=== PATIENT | female | born 1970 | race Caucasian/White ===

== ENCOUNTER 2018-07-13 21:33 | Emergency (ER) | payer OTHER ==
[2018-07-13 21:56] VITALS: BP 125/86; PULSE 101; RESP 20; TEMP 98.6; O2SAT 97
[2018-07-13] MEDS ORDERED: Bacitracin 500 Units/gm Oint Foilpak UD ONE (22:07)
--- NOTE | 2018-07-13 23:23 | C.PDOC ---
History Of Present Illness 47 year old female presents to the ER after she missed a step at home causing her to fall and twist her right ankle. Patient is complaining of pain and swelling of the right ankle and a scrap to the left knee. Denies LOC, weakness, or numbness. Time Seen by Provider: 07/13/18 21:51 Chief Complaint (Nursing): Abnormal Skin Integrity History Per: Patient History/Exam Limitations: no limitations Onset/Duration Of Symptoms: Hrs Current Symptoms Are (Timing): Still Present Location Of Injury: Right: Ankle, Left: Knee Recent travel outside of the [place]: No Past Medical History Reviewed: Historical Data, Nursing Documentation, Vital Signs Vital Signs: Last Vital Signs Temp 98.6 F 07/13/18 21:50 Pulse 101 H 07/13/18 21:50 Resp 20 07/13/18 21:50 BP 125/86 07/13/18 21:50 Pulse Ox 97 07/13/18 21:50 Family History: States: Unknown Family Hx - Social History Hx Alcohol Use: No Hx Substance Use: No - Immunization History Hx Tetanus Toxoid Vaccination: No Hx Influenza Vaccination: Yes Hx Pneumococcal Vaccination: No Review Of Systems Musculoskeletal: Positive for: Other (Right ankle pain and swelling) Skin: Positive for: Other (Abrasions) Neurological: Negative for: Weakness, Numbness Physical Exam - Physical Exam Appears: Non-toxic Skin: Warm, Dry Head: Atraumatic, Normacephalic Eye(s): bilateral: Normal Inspection Oral Mucosa: Moist Neck: Normal ROM, No Midline Cervical Tenderness, No Paracervical Tenderness Chest: Symmetrical, No Tenderness Cardiovascular: Rhythm Regular Respiratory: Normal Breath Sounds Back: No Vertebral Tenderness, No Paraspinal Tenderness Extremity: Normal ROM (x4), Capillary Refill (<2 seconds), Other (Abrasion to anterior left knee. Abrasion to right ankle. Mild swelling and tenderness to right medial malleolus) Pulses: Left Dorsalis Pedis: Normal, Right Dorsalis Pedis: Normal Neurological/Psych: Oriented x3, Normal Speech, Normal Motor, Normal Sensation Gait: Steady ED Course And Treatment O2 Sat by Pulse Oximetry: 97 (Room air) Pulse Ox Interpretation: Normal - Other Rad Right ankle x-ray X-Ray: Interpreted by Me, Viewed By Me Interpretation: No acute fractures or dislocations Medical Decision Making Medical Decision Making: Right ankle x-ray ordered, results were negative. Janaenol administered. Patient placed in posterior splint for support by CP, given crutches with instructions, will discharge home with Rx and instructions to follow up with ortho. Disposition - Disposition Referrals: Keely Zelaya MD [Staff Provider] - Disposition: HOME/ ROUTINE Disposition Time: 23:22 Condition: STABLE Additional Instructions: Follow up with the Orthopedist within 1-2 days. return if worsened. Prescriptions: Ibuprofen [Motrin] 600 mg PO TID #21 tab Instructions: Ankle Sprain (DC), Skin Abrasions (DC) Forms: [employer] (Czech) - Clinical Impression Clinical Impression: Abrasion, Knee contusion, Ankle sprain - PA / [employer] / Resident Statement MD/DO has reviewed & agrees with the documentation as recorded. - Scribe Statement The provider has reviewed the documentation as recorded by the Scribe Jeffrey Shabazz All medical record entries made by the Scribe were at my direction and personally dictated by me. I have reviewed the chart and agree that the record accurately reflects my personal performance of the history, physical exam, medical decision making, and the department course for this patient. I have also personally directed, reviewed, and agree with the discharge instructions and disposition.
--- NOTE | 2018-07-14 10:54 | RAD ---
Date of service: 07/13/2018 PROCEDURE: Right Ankle Radiographs. HISTORY: ankle injur pain COMPARISON: None available. FINDINGS: BONES: Normal. No fracture. JOINTS: Normal. No osteoarthritis. Ankle mortise maintained. Talar dome intact SOFT TISSUES: Lateral and anterior soft tissue swelling without visible fracture. OTHER FINDINGS: None. IMPRESSION: Soft tissue swelling without acute articular or osseous abnormality.
== END 2018-07-13 23:32 | disposition home or self-care (01) ==
LOC: C.ER 21:33
DX: S93.401A Sprain of unspecified ligament of right ankle, initial encounter (principal); S80.02XA Contusion of left knee, initial encounter; S90.511A Abrasion, right ankle, initial encounter; S80.212A Abrasion, left knee, initial encounter; W19.XXXA Unspecified fall, initial encounter; Y92.009 Unspecified place in unspecified non-institutional (private) residence as the place of occurrence of the external cause